=== PATIENT | female | born 1990 | race Asian ===

== ENCOUNTER 2016-11-01 12:12 | Emergency (ER) | payer OTHER ==
[~2016-11-01] VITALS: Ht 160 cm; Wt 81.6 kg
[~2016-11-01 12:12] MED LIST: AFRIN NAS; ALBUTEROL0.09 MG/A1 INH; AUGMENTIN 875 M1 TAB PO; BACLOFEN10 M1 PO; BACTRIM DS TAB1 EACH PO; CYCLOBENZAPRINE5 M2 PO; HYDROXYZINE HCL25 M2 PO; IBUPROFEN600 M1 PO; MACROBID100 MG PO; MEDROL4 M2 PO; OVCON; PREDNISONE50 MG PO; PRENATAL TABLE1 EAC2 PO; TORADOL10 MG PO; TRAMADOL HCL50 M1 PO; TRIAMCINOLONE A15 G2 TOP; ULTRAM50 M1 PO; ZOFRAN4 M1 SL
[2016-11-01 13:47] LABS: ABSOLUTE BASOPHIL COUNT 0 /CUMM (0.0-0.2); ABSOLUTE EOSINOPHIL COUNT 0 /CUMM (0.0-0.7); ABSOLUTE GRANULOCYTE CT 7.2 /CUMM (1.4-6.5); ABSOLUTE LYMPH COUNT 1.2 /CUMM (1.2-3.4); ABSOLUTE MONOCYTE COUNT 0.6 /CUMM (0.10-0.60); BASOPHIL % 0.2 % (0.0-2.0); EOSINOPHIL % 0.1 % (0-5); HEMATOCRIT 37.5 % (37-47); MEAN CORPUSCULAR HGB 28.3 PG (27.0-31.0); MEAN CORPUSCULAR HGB CONC 33.1 G/DL (33.0-37.0); MEAN CORPUSCULAR VOLUME 85.5 FL (81.0-99.0); PLATELET COUNT 209 /CUMM (130-400); RBC DISTRIBUTION WIDTH 12.8 % (11.5-14.5); RED BLOOD CELL CT 4.38 /CUMM (4.20-5.40); WHITE BLOOD CELL COUNT 9.1 /CUMM (4.8-10.8)
[2016-11-01 13:50] LABS: GRANULOCYTE % 79.3 % (42.2-75.2)
--- NOTE | 2016-11-01 13:52 | ED GENERAL ADULT ---
History of Present Illness General Chief Complaint: Fever Stated Complaint: FEVER AND VOMITING Source: patient Exam Limitations: no limitations Vital Signs & Intake/Output Vital Signs & Intake/Output Vital Signs Date Time Temp Pulse Resp B/P Pulse O2 O2 Flow FiO2 Ox Delivery Rate 11/01 1503 99.7 98 18 122/79 99 Room Air 11/01 1219 101.6 108 18 137/84 99 Room Air ED Intake and Output 11/02 0000 11/01 1200 Intake Total 1000 Output Total Balance 1000 Intake, IV 1000 Patient 180 lb Weight Allergies Coded Allergies: NO KNOWN ALLERGIES (06/26/15) Triage Note: 26 Y/O FEMALE C/O "FEVER AND CHILLS" X 3 DAYS; ALSO C/O GENERALIZED PAIN AND PAIN TO L FLANK/LLQ. DENIES URINARY SYMPTOMS. +NAUSEA/VOMITING. TEMP 101.6 - PT TOOK TYLENOL THIS AM; NOT MEDICATED IN TRIAGE DUE TO CURRENT COMPLAINTS OF NAUSEA. Triage Nurses Notes Reviewed? yes Onset: Abrupt Duration: day(s): (3), constant, continues in ED Timing: recent history Injury Environment: home Severity: moderate, severe No Modifying Factors: none : No Patient currently breastfeeds: No HPI: 26-year-old female comes into emergency room for further evaluation of fever chills body aches and nausea vomiting and abdominal pain area patient also reports that she is been having some associated shortness of breath. Symptoms began going on for the past 3 days getting progressively worse. Denies any vaginal discharge or urinary symptoms. Denies any sore throat runny nose signs congestion. Denies any cough or mucus production. Denies any other associated symptoms. (HARSHA JONAS,ZI) Reconcile Medications Ciprofloxacin HCl (Cipro) 500 MG TABLET 1 TAB PO BID UTI Ibuprofen 800 MG TABLET 1 TAB PO TID pain/fever Multivitamin With Minerals (Hair, Skin & Nails) 1 EACH TABLET 1 TAB PO DAILY SUPPLEMENT (Reported) Vitamin B Complex 1 EACH CAPSULE 1 CAP PO DAILY SUPPLEMENT (Reported) (JENNIFER ARMIJO,GRACIELA) Past History Travel History Traveled to [place] past 21 day No Medical History Any Pertinent Medical History? see below for history Neurological: migraine EENT: NONE Cardiovascular: NONE Respiratory: NONE Gastrointestinal: NONE Hepatic: NONE Renal: NONE Musculoskeletal: NONE Psychiatric: NONE Endocrine: NONE Blood Disorders: NONE Cancer(s): NONE Surgical History Surgical History: non-contributory Psychosocial History What is your primary language Barbadian Tobacco Use: Current Not Daily Family History Hx Contributory? No (ZI SR) Review of Systems Review of Systems Constitutional: Reports: see HPI. EENTM: Reports: no symptoms. Respiratory: Reports: see HPI. Cardiovascular: Reports: no symptoms. GI: Reports: see HPI. Genitourinary: Reports: no symptoms. Musculoskeletal: Reports: see HPI. Skin: Reports: no symptoms. Neurological/Psychological: Reports: no symptoms. Hematologic/Endocrine: Reports: no symptoms. Immunologic/Allergic: Reports: no symptoms. All Other Systems: Reviewed and Negative (ZI SR) Physical Exam Physical Exam General Appearance: well developed/nourished, no apparent distress, alert Head: atraumatic, normal appearance Eyes: Bilateral: normal appearance, EOMI. Ears, Nose, Throat: normal pharynx, normal ENT inspection, hearing grossly normal, TMs normal bilaterally Neck: normal inspection Respiratory: normal breath sounds, no respiratory distress Cardiovascular: regular rate/rhythm, tachycardia Gastrointestinal: soft, tenderness (left midabdomen) Back: normal inspection Extremities: normal inspection, normal range of motion, no edema Neurologic/Psych: awake, alert, oriented x 3, normal gait, normal mood/affect Skin: intact, normal color Core Measures ACS in differential dx? No CVA/TIA Diagnosis: No Severe Sepsis Present: No Septic Shock Present: No (ZI SR) Progress Differential Diagnoses I considered the following diagnoses in my evaluation of the patient: Viral syndrome, gastritis, pancreatitis, cholecystitis, mono, influenza, pulmonary embolism, Plan of Care: Orders Procedure Date/time Status Add-on Test (ER Only) 11/01 1555 Active CULTURE,URINE 11/01 1452 Active RAPID VIRAL INFLUENZA A 11/01 1316 Complete MONOSPOT TEST 11/01 1316 Complete LIPASE 11/01 1316 Complete COMPREHENSIVE METABOLIC PANEL 11/01 1316 Complete CBC WITHOUT DIFFERENTIAL 11/01 1316 Complete AMYLASE 11/01 1316 Complete URINE 11/01 1220 Complete URINALYSIS 11/01 1220 Complete Laboratory Tests 11/01/16 1454: Urine Color YEL, Urine Clarity HAZY H, Urine pH 6.0, Ur Specific Mitchell 1.025, Urine Protein TRACE H, Urine Ketones NEG, Urine Nitrite POS H, Urine Bilirubin NEG, Urine Urobilinogen 0.2, Ur Leukocyte Esterase TRACE H, Ur Microscopic SEDIMENT EXAMINED, Urine RBC RARE, Urine WBC 10-15 H, Ur Epithelial Cells FEW, Urine Bacteria MANY H, Urine Hemoglobin TRACE-INTACT, Urine Glucose NEG, Urine Test NEGATIVE 11/01/16 1337: Anion Gap 12, Estimated GFR > 60, BUN/Creatinine Ratio 18.6, Glucose 117 H, Calcium 8.9, Total Bilirubin 0.5, AST 26, ALT 41, Alkaline Phosphatase 56, Total Protein 7.4, Albumin 4.0, Globulin 3.4, Albumin/Globulin Ratio 1.2, Amylase 67, Lipase 84, CBC w Diff NO MAN DIFF REQ, RBC 4.38, MCV 85.5, MCH 28.3, RDW 12.8, MPV 7.0 L, Gran % 79.3 H, Lymphocytes % 13.6 L, Monocytes % 6.8, Eosinophils % 0.1, Basophils % 0.2, Absolute Granulocytes 7.2 H, Absolute Lymphocytes 1.2, Absolute Monocytes 0.6, Absolute Eosinophils 0, Absolute Basophils 0, PUBS MCHC 33.1, Infectious [place] Titer NEGATIVE Microbiology 11/01 1452 URINE ROUT: Urine Culture - RECD 11/01 1342 NASOPHARYN: Influenza Virus A & B Rapid Smear - COMP Initial ED EKG: none Comments: 11/01/2016 4:18:23 PM Patient clinically looks well. After reevaluating the patient she feels significantly better. Patient started on oral antibiotics due to signs of urinary tract infection even though she is asymptomatic. Covered with ciprofloxacin due to her high fever. However I feel that the patient has symptoms more consistent with a viral illness as opposed to pyelonephritis. She has no right lower abdominal tenderness. Negative McBurney's point. No rebound tenderness. No suspicion for appendicitis. Discussed early possibility. Please return if any other concerns worsening symptoms. Discussed CAT scan with patient. She is and agrees a plan of care. CT scan will be held at this time and she will return if she has any worsening of symptoms. Case discussed with Dr. knox. (HARSHA JONASTRIMBLE) Departure Departure Disposition: HOME OR SELF CARE Condition: Stable Clinical Impression Primary Impression: Viral syndrome Secondary Impressions: UTI (urinary tract infection) Referrals: JONNIE NATION APRN (PCP/Family) Additional Instructions: Take ciprofloxacin and ibuprofen as prescribed. Rest. Drink any fluids. Return if any concerns worsening symptoms. Please go over all results of today's visit with your primary care doctor. Contact your primary care doctor to let them know you were here in the emergency room. There may be nonspecific findings which may not be related to your visit today here in the emergency room but may require further evaluation and chronic monitoring by your primary care doctor. If you had a laceration today the chance of foreign body always remains. You should follow-up with your primary care doctor for recheck in 3-5 days for a wound check. If you had an x-ray done there is a chance that a fracture could have been missed on initial read and you should follow-up with your primary care doctor for repeat x-rays if symptoms persist. If your blood pressure was elevated here in the emergency room please have rechecked by her primary care doctor within the next 48 hours by your primary care doctor. If you were prescribed a narcotic here in the emergency room or any type of controlled substances you're not allowed to drive while taking this medication or operate any type of heavy machinery. Narcotics can make you feel lightheaded dizziness nausea and can cause constipation. You may need to pepper picker a stool softener. Thank you for choosing [facility] emergency room. Please return to the emergency room immediately if you have any other concerns worsening of symptoms. Departure Forms: Customer Survey General Discharge Information Prescriptions: Current Visit Scripts Ciprofloxacin HCl (Cipro) 1 TAB PO BID #14 TAB Ibuprofen 1 TAB PO TID #20 TAB (ZI SR) PA/PLANT OPERATOR/SHIFT SUPERVISOR Co-Sign Statement Statement: ED Attending supervision documentation- [] I saw and evaluated the patient. I have also reviewed all the pertinent lab results and diagnostic results. I agree with the findings and the plan of care as documented in the PA's/PLANT OPERATOR/SHIFT SUPERVISOR's documentation. [X] I have reviewed the ED Record and agree with the PA's/PLANT OPERATOR/SHIFT SUPERVISOR's documentation. [] Additions or exceptions (if any) to the PAs/PLANT OPERATOR/SHIFT SUPERVISOR's note and plan are summarized below: [] (JENNIFER ARMIJO,GRACIELA) Critical Care Note Critical Care Note Critical Care Time: non-applicable (ZI SR)
[2016-11-01 15:03] VITALS: BP 122/79
[2016-11-01] MEDS ORDERED: CIPRO500 M1 PO (15:53)
[2016-11-01] MEDS ORDERED: IBUPROFEN800 M1 PO (15:54)
[2016-11-01] MEDS ORDERED: VITAMIN B COMP1 EACH PO (16:19)
[2016-11-01] MEDS ORDERED: HAIR, SKIN & N1 EACH PO (16:19)
== END 2016-11-01 16:24 ==
LOC: ERH 12:12
PROVIDERS: Physician Assistant Medical
DX: B34.9 Viral infection, unspecified (principal); N39.0 Urinary tract infection, site not specified
CPT/HCPCS: 81001; 81025; 87086; 87804; 87804-59; 96374; 96375; J1885; J2405

== ENCOUNTER 2018-02-07 17:17 | Emergency (ER) | payer OTHER ==
[~2018-02-07] VITALS: Ht 160 cm; Wt 86.2 kg
[~2018-02-07 17:17] MED LIST changes: +CIPRO500 M1 PO; +HAIR, SKIN & N1 EACH PO; +IBUPROFEN800 M1 PO; +VITAMIN B COMP1 EACH PO
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
[2018-02-07 21:10] VITALS: BP 121/76
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
== END 2018-02-07 22:40 ==
LOC: ERH 17:17
DX: T74.11XA Adult physical abuse, confirmed, initial encounter (principal); S00.83XA Contusion of other part of head, initial encounter; S09.90XA Unspecified injury of head, initial encounter; R10.9 Unspecified abdominal pain; Y04.0XXA Assault by unarmed brawl or fight, initial encounter; Y07.03 Male partner, perpetrator of maltreatment and neglect
CPT/HCPCS: 74176; 81001; 81025